=== PATIENT | male | born 1960 | race Caucasian/White ===

== ENCOUNTER 2020-03-17 | Inpatient (IN) | payer MEDICARE, MEDICAID ==
[2020-03-17] MEDS ORDERED: METFORMIN500 M2 PO (03:50)
--- NOTE | 2020-03-17 03:54 | NUR ---
XRAY AT BEDSIDE
--- NOTE | 2020-03-17 04:16 | NUR ---
IV STARTED/LABS DRAWN. 2ND CULTURES OBTAINED BY LAB/REGISTRATION AT BEDSIDE. PT STARES AHEAD AND IS HAVING A CONVERSATION WITH SOMEONE THAT ISN'T THERE.
[2020-03-17 04:54] LABS: URINE BILIRUBIN - DIPSTICK NEGATIVE (NEGATIVE); URINE BLOOD DIPSTICK MODERATE (NEGATIVE); URINE COLOR YELLOW; URINE GLUCOSE - DIPSTICK >=1000 mg/dL (NEGATIVE); URINE KETONE 15 mg/dL (NEGATIVE); URINE LEUK ESTERASE NEGATIVE (NEGATIVE); URINE NITRITE - DIPSTICK NEGATIVE (Negative); URINE PROTEIN - DIPSTICK 100 mg/dL (NEG-TRACE); URINE SPECIFIC GRAVITY >=1.030
[2020-03-17 04:56] LABS: HEMATOCRIT 40.6 % (39.0-50.0); HEMOGLOBIN 13.4 g/dl (14.0-18.0); IMMATURE GRANULOCYTES 0.2 % (0.0-5.0); MEAN CELL VOLUME 83.5 fL CALC (80.0-100.0); MEAN CORPUSCULAR HGB 27.6 pG CALC (26.0-32.0); NEUT# 7.54 thou/uL (1.82-7.42); RED BLOOD COUNT 4.86 mill/uL (4.70-6.10); RED CELL DISTRI WIDTH 13.2 % (11.5-15.5)
[2020-03-17 05:10] LABS: URINE BACTERIA FEW hpf; URINE EPITHELIAL CELLS FEW EPI/hpf (0-FEW); URINE MUCUS MODERATE hpf (NONE-FEW)
[2020-03-17 05:11] LABS: BARBITURATES NEGATIVE (NEGATIVE); COCAINE NEGATIVE (NEGATIVE); METHADONE NEGATIVE (NEGATIVE); OXCYCODONE NEGATIVE (NEGATIVE); TETRAHYDROCANNABIONOL NEGATIVE (NEGATIVE); TRICYLIC ANTIDEPRESSANTS NEGATIVE (NEGATIVE); URINE HYALINE CAST RARE lpf (NONE-RARE)
[2020-03-17 05:20] LABS: MYOGLOBIN 352 ng/mL (0 - 121)
--- NOTE | 2020-03-17 05:38 | NUR ---
COVID SWAB TO LAB. PT REFUSED TO ALLOW TO DO THE SWAB...HE GRABBED IT FROM ME AND ROTATED IT AROUND THE ANTERIOR NARES.
[2020-03-17 05:41] LABS: ALBUMIN 3.8 g/dL (3.2-5.0); ALKALINE PHOSPHATASE 87 u/l (38-126); ANION GAP 14 (6-22 (CALC)); BILIRUBIN, TOTAL 0.9 mg/dL (0.0-1.4); BUN 20 mg/dL (9-20); BUN/CREATININE RATIO 29 (12-20 (CALC)); CARBON DIOXIDE 22 mmol/l (22-30); CHLORIDE 108 mmol/l (95-108); CREATININE 0.7 mg/dL (0.7-1.3); GFR > 60 ML/MIN (>=60 (CALC)); GFR FOR AFR.AMER. > 60 ML/MIN (>=60 (CALC)); POTASSIUM 3.7 mmol/l (3.5-5.1); SGOT/AST 35 u/l (17-59); SODIUM 140 mmol/l (137-146); TOTAL PROTEIN 7.1 g/dL (6.3-8.2)
--- NOTE | 2020-03-17 06:15 | NUR ---
WOUNDS WERE PHOTOGRAPHED AND PLACED IN CHART. WOUNDS CLEANSED WITH SHURCLEANS. NON AHERANT DRSGS FOLLOWED BY 4X4/ERMIAS/DRESSING NET. BARIATRIC FOOTIES APPLIED OVERTOP. PT DOESN'T APPEAR TO HAVE FEELING IN EITHER FOOT.
--- NOTE | 2020-03-17 06:45 | NUR ---
PT WOULD NEVER GIVE A FULL EXPLANATION TO WHY HE WAS [place] THE [facility]. STATES HE JUST SPENT THE LAST 4 MONTHS AT A HOSPITAL IN [place]....EARLIER HE TOLD ME HE ARRIVED FROM [place] ON SUNDAY BECAUSE HE JUST BOUGHT SOME PROPERTY HERE AND HE IS MOVING HERE....JUST BEFORE GOING TO THE FLOOR...HE TOLD ME THAT HE PARENTS ARE ON THEIR WAY HERE FROM [facility] TO PICK HIM UP BUT CAN'T EXPLAIN HOW THEY KNEW HE WAS HERE.
--- NOTE | 2020-03-17 06:45 | NUR ---
REPORT TO CORINE. PT TO FLOOR VIA W/C. 3RD LITER OF FLUID TO FLOOR WITH PT AND VANCOMYCIN TO FLOOR WITH PT. 2 LITERS NS COMPLETED/ZOSYN COMPLETED. PT REFUSED TO CHANGE INTO GOWN AGAIN. SAID HE WOULD CHANGE AFTER HE GOT UPSTAIRS.
--- NOTE | 2020-03-17 06:53 | NUR ---
REPORT RECEIVED FROM ROBERT IN ED, PT ARRIVED ON UNIT @ 0653 VIA W/C AND TRANSFERRED TO BED. ORIENTED X 3, DENIES PAIN/DISCOMFORT, ORIENTED TO ROOM AND CALL HAYDEN. SOFT SPOKEN, INFORMATION INCONSISTENT AT TIMES EG: HE STATED HE HAS TO GO TO [place] TODAY TO GET HIS TRUCK BUT LATER SAID HIS IS IN [place] NOW AND WILL BRING DOWN HIS TRUCK, BUT SHE HAS HER OWN CAR WHICH SHE WILL BE DRIVING. WILL CONTINUE TO MONITOR.
[2020-03-17 07:44] VITALS: BP 153/89
--- NOTE | 2020-03-17 07:50 | NUR ---
DR LOPEZ CALLED AND GAVE ORDERS FOR LABS AND IMAGING STUDIES, PT INFORMED AND CONSENTED TO PROCEDURES.
[2020-03-17 12:37] VITALS: BP 156/83
--- NOTE | 2020-03-17 12:40 | NUR ---
PT REFUSED COZAAR STATING HI BLOOD PRESSURE IS ALWAYS IN 150'S/70'S-80'S AND HE DOES NOT WANT HYPERTENSIVE MEDS, EDICATED ON RISKS FOR STROKE AND OTHER COMPLICATION WITH DIABETES AND HTN, STILL REFUSED.
--- NOTE | 2020-03-17 13:36 | NUR ---
LEAVING UNIT NOW VIA W/C TO US FOR PROCEDURE.
--- NOTE | 2020-03-17 15:31 | NUR ---
S: MAEVE FARAH is a 60 M who presents with SSTI. He has a history of DM2. All medications in patient's chart were reviewed. O: VS: BP 156/83, P 73, RR 19,T 97.5 W 100kg, HT 78IN, Scr= 0.7,CrCl= >100ml/min A: Blood culture is pending P: Patient is on ZOSYN 3.375 GRAMS Q6H. Vancomycin ordered for pharmacy to dose. Start Vancomycin 1250MG IV Q8H. Vancomycin trough is drawn before the 4th dose on 03/18/20 @1330. Vancomycin goal trough is between 15-20 mcg/ml UNTIL BONE INFECTION RULED OUT . Pharmacy will follow and or advise on antibiotics use as needed. MACKENZIE MILAND
[2020-03-17 16:05] VITALS: BP 132/76
--- NOTE | 2020-03-17 17:02 | NUR ---
RESTING IN BE AT THIS TIME, ALL NEEDS ADDRESSED.
[2020-03-17 19:00] VITALS: BP 134/78
--- NOTE | 2020-03-17 19:10 | NUR ---
REPORT FROM VENANCIO CHANG. PT RESTING IN BED WITH EYES CLOSED. NO APPARENT DISTRESS NOTED. PT DENIES ANY PAIN OR DISCOMFORT. PT IS ORIENTED X3 HOWEVER NOT INTERESTED IN DISCUSSING POC AT THIS TIME. DRESSING NOTED TO BLE, CDI. IV SITE APPEARS HEALTHY WITH IV FLUIDS INFUSING. CALL LIGHT WITHIN REACH. PT INSTRUCTED TO CALL FOR NEEDS. WILL CONTINUE TO MONITOR.
--- NOTE | 2020-03-17 23:11 | NUR ---
PT RESTING IN BED WITH EYES CLOSED. NO APPARENT DISTRESS NOTED. DRESSING REMAIN CDI. CALL LIGHT WITHIN REACH. WILL CONTINUE TO MONITOR.
--- NOTE | 2020-03-18 03:26 | NUR ---
PT RESTING IN BED WITH EYES CLOSED. NO APPARENT DISTRESS NOTED. CALL LIGHT WITHIN REACH. WILL CONTINUE TO MONITOR.
[2020-03-18 05:00] VITALS: BP 132/80
--- NOTE | 2020-03-18 07:15 | NUR ---
REPORT RECEIVED FROM SHA KENNEY. PT RESTING IN BED SEMI FOWLERS; ALERT AND ORIENTED; FLAT AFFECT. DENIES PAIN TO FEET OR ELSEWHERE. RESPIRATIONS EVEN AND UNLABORED ON ROOM AIR. LUNGS ARE CLEAR; HEART RATE REGULAR AT 55 BPM. ACCU CHECK 252. WEAK PEDAL PULSES; OPEN AREAS TO BILATERAL FEET. IV FLUIDS INFUSING WITHOUT DIFFICULTY; IV SITE APPEARS HEALTHY. SAFETY MEASURES IN PLACE. CALL LIGHT WITHIN REACH.
--- NOTE | 2020-03-18 07:22 | NUR ---
DR. LOPEZ AT BEDSIDE TO DISCUSS PLAN OF CARE. PT DECLINING SURGICAL INTERVENTIN AT THIS TIME.
--- NOTE | 2020-03-18 07:41 | NUR ---
WOUNDS TO BILATERAL FEET CLEANSED WITH BETADINE AND DRY DRESSING; DRESSING ORDERS PER DR. LOPEZ AND NEW ORDER FOR WOUND CONSULT. PT TOLERATED WELL.
[2020-03-18 08:00] VITALS: BP 150/84
--- NOTE | 2020-03-18 08:41 | NUR ---
PT DECLINED COZAAR FOR BLOOD PRESSURE; REMINDED OF BLOOD PRESSURE 150/84; PT REPORTS THAT IS HIS NORMAL AND HE DECLINES. ALSO DECLINES LOVENOX; EXPLAINED INDICATION FOR LOVENOX AND PT AGAIN DECLINES STATING HE DOES NOT LIKE THAT IT INCREASES BLEEDING AT FINGER STICK SITES. PT AGREED TO WEAR SCD'S; APPLIED AT THIS TIME. PNEUMONIA VACCINE ADMINISTERED TO RIGHT ARM.
--- NOTE | 2020-03-18 09:17 | NUR ---
PT REQUESTING BIBLE AND GERIATRIC NURSE PRACTITIONER; PROVIDED.
--- NOTE | 2020-03-18 09:54 | NUR ---
COVID SWAB RESULTS NEGATIVE.
--- NOTE | 2020-03-18 11:49 | NUR ---
DR. MOMIN AT VIRTUAL BEDSIDE FOR INFECTIOUS DISEASE CONSULT. PT CONTINUES TO VERBALIZE DECLINATION OF ANY SURGICAL INTERVENTION.
--- NOTE | 2020-03-18 13:21 | NUR ---
TRANSITION LEAD AT BEDSIDE (FATHER EDMUND).
[2020-03-18 15:20] VITALS: BP 142/80
--- NOTE | 2020-03-18 15:24 | NUR ---
MEDICAL RECORDS OBTAINED FROM [facility] WHERE PT WAS DISCHARGED FROM ON 03/13/20. H&P REVEALED HOMELESSNESS AND OTHER SOCIAL ISSUES. CASE MANAGEMENT AND NURSE PRACTITIONER NOTIFIED.
--- NOTE | 2020-03-18 15:35 | NUR ---
S: MAEVE FARAH is a 60 M who presents with Osteomyelitis and diabetic foot ulcer . He has a history of DM2 and IV antibiotics. All medications in patient's chart were reviewed. O: VS: BP 142/80, P 57, RR 18,T 97.8 W 100kg, HT 78in, Scr=0.7 ,CrCl= >100ml/min A: Blood culture is pending. P: Patient is on Zosyn 3.375grams q6h. Vancomycin ordered for pharmacy to dose. Continue Vancomycin 1250mg IV Q8H. Vancomycin trough is drawn before the dose on 03/19/20 @1330. Vancomycin goal trough is between 15-20 mcg/ml. Dr. Hurt is not recommending prolonged iv antibiotics. Pharmacy will follow and or advise on antibiotics use as needed.
--- NOTE | 2020-03-18 19:10 | NUR ---
REPORT FROM HILDA CHANG. PT RESTING IN BED WITH EYES CLOSED. NO APPARENT DISTRESS NOTED. PT DENIES ANY PAIN OR DISCOMFORT. PT IS ORIENTED X3. DISCUSSED POC, PT VERBALIZED UNDERSTANDING. DRESSING NOTED TO BLE, CDI. IV SITE APPEARS HEALTHY WITH IV FLUIDS INFUSING. CALL LIGHT WITHIN REACH. PT INSTRUCTED TO CALL FOR NEEDS. WILL CONTINUE TO MONITOR.
[2020-03-18 19:18] VITALS: BP 157/84
--- NOTE | 2020-03-18 21:45 | NUR ---
PT C/O ACHY PAIN IN BOTH FEET 6-10. SAMPLE TESTER GRINDER PHYSICIAN NOTIFIED AND ORDERS RECEIVED. PT TO BE MEDICATED ONCE PHARMACY PROFILES MEDICATION. SNACK AND BLACK COFFEE PROVIDED UPON REQUEST. WILL CONTINUE TO MONITOR.
--- NOTE | 2020-03-19 01:03 | NUR ---
PT RESTING IN BED WITH EYES CLOSED. NO APPARENT DISTRESS NOTED. IV FLUIDS INFUSING WITHOUT DIFFICULTY. CALL LIGHT WITHIN REACH. WILL CONTINUE TO MONITOR.
[2020-03-19 04:43] LABS: IMMATURE GRANULOCYTES 0.4 % (0.0-5.0); MEAN CELL VOLUME 84.8 fL CALC (80.0-100.0); MEAN CORPUSCULAR HGB 27.4 pG CALC (26.0-32.0); MEAN CORPUSCULAR HGB CONC 32.3 g/dL CAL (32.0-36.0); NEUT# 3.04 thou/uL (1.82-7.42); RED BLOOD COUNT 4.02 mill/uL (4.70-6.10); RED CELL DISTRI WIDTH 13.1 % (11.5-15.5)
[2020-03-19 04:55] LABS: HEMATOCRIT 34.1 % (39.0-50.0)
[2020-03-19 05:01] VITALS: BP 148/86
[2020-03-19 05:03] LABS: ALKALINE PHOSPHATASE 67 u/l (38-126); ANION GAP 8 (6-22 (CALC)); BUN 9 mg/dL (9-20); BUN/CREATININE RATIO 12 (12-20 (CALC)); CARBON DIOXIDE 25 mmol/l (22-30); CHLORIDE 108 mmol/l (95-108); CREATININE 0.7 mg/dL (0.7-1.3); GFR > 60 ML/MIN (>=60 (CALC)); GFR FOR AFR.AMER. > 60 ML/MIN (>=60 (CALC)); POTASSIUM 3.4 mmol/l (3.5-5.1); SGOT/AST 17 u/l (17-59); SODIUM 138 mmol/l (137-146)
[2020-03-19 05:04] LABS: ALBUMIN 2.7 g/dL (3.2-5.0); BILIRUBIN, TOTAL 0.3 mg/dL (0.0-1.4); TOTAL PROTEIN 5.3 g/dL (6.3-8.2)
--- NOTE | 2020-03-19 05:48 | NUR ---
PT RESTING IN BED WITH EYES CLOSED. PT WAKES EASILY. DENIES ANY PAIN. PT SHORT WITH ANSWERS. NO APPARENT DISTRESS NOTED. CALL LIGHT WITHIN REACH. WILL CONTINUE TO MONITOR.
--- NOTE | 2020-03-19 07:00 | NUR ---
SHIFT CHANGE REPORT, PT AWAKE ALERT AND ORIENTED WITH FLAT AFFECT, POLITE, DENIES PAIN/DISCOMFORT, CALL HAYDEN IN REACH.
[2020-03-19 07:26] VITALS: BP 151/82
--- NOTE | 2020-03-19 10:01 | NUR ---
DR CHRISTOPHER HERE ON CONSULT FOR TREATMENT TO WOUNDS ON FEET, SHE REPORTED PT REFUSED TREATMENT STATING GOD WILL HEAL HIM, ALL OTHER NEEDS ADDRESSED, CALL HAYDEN IN REACH.
--- NOTE | 2020-03-19 12:00 | NUR ---
MD DUQUE, DISCUSSED MEDICAL CONDITION OF FOOT WITH PT WHO STATED HE WILL NOT HAVE ANY MORE SURGICAL INTERVENTION DONE HE ALREADY HAD SURGERY WHICH WAS UNNECESSARY AND HE IS IN THE PROCESS OF SUING THE DOCTOR WHO PERFORMED THE SURGERY. HE ALSO STATED GOD WILL HEAL HIS FEET, HE IS WILLING TO HAVE ANTIBIOTICS BUT THATS ABOUT ALL THE TREATMENT HE WILL HAVE FOR FEET.
--- NOTE | 2020-03-19 15:27 | NUR ---
pt presents with osteomyelitis. deshawno ordered for pharmacy to dose. increase dose to 1500mg iv q8h @ 0630, 1400, and 2200. goal trough is 15-20 and is to be drawn 30 min before 4th dose on 03/20 @ 2130. pharmacy will continue to monitor
[2020-03-19 15:39] VITALS: BP 149/84
--- NOTE | 2020-03-19 16:03 | NUR ---
PT REPORTED THAT WHILE IN [facility] HE OBSERVED A FACE WITH VISIBLE TEETH ON HIS RIGHT FOOT AND FACE SPOKE TO HIM TELLLING HIM HE WAS A BAD PERSON, HE THEN TOOK A PAIR OF SCISSORS AND CUT OFF FACE WHICH THEN JUMPED AWAY TO ANOTHER ROOM AND THATS HOW HE GOT THE WOUNDS ON HIS FOOT THEY WERE HEALED BEFORE THIS INCIDENT. WILL CONTINUE TO MONITOR.
--- NOTE | 2020-03-19 16:15 | NUR ---
OLD DRESSINGS REMOVED FROM BOTH FEET, WOUNDS CLEANED WITH 0.9NS, BETADINE APPLIED AND COVERED WITH DSD, HE TOLERATED PROCEDURE WELL.
--- NOTE | 2020-03-19 19:15 | NUR ---
REPORT FROM VENANCIO CHANG. PT RESTING IN BED WITH EYES CLOSED. NO APPARENT DISTRESS NOTED. PT DENIES ANY PAIN OR DISCOMFORT. PT IS ORIENTED X3. DISCUSSED POC, PT VERBALIZED UNDERSTANDING. DRESSING NOTED TO BLE, CDI. IV SITE APPEARS HEALTHY WITH IV FLUIDS INFUSING. CALL LIGHT WITHIN REACH. PT INSTRUCTED TO CALL FOR NEEDS. WILL CONTINUE TO MONITOR.
[2020-03-19 20:05] VITALS: BP 152/84
--- NOTE | 2020-03-19 23:02 | NUR ---
PT RESTING IN BED WITH EYES CLOSED. NO APPARENT DISTRESS NOTED. CALL LIGHT WITHIN REACH. WILL CONTINUE TO MONITOR.
--- NOTE | 2020-03-20 03:46 | NUR ---
PT RESTING IN BED WITH EYES CLOSED. NO APPARENT DISTRESS NOTED. IV FLUIDS INFUSING WITHOUT DIFFICULTY. CALL LIGHT WITHIN REACH. WILL CONTINUE TO MONITOR.
--- NOTE | 2020-03-20 06:05 | NUR ---
IV SITE FOUND DISLODGED. X4 ATTEMPTS BY TWO NURSES WITHOUT SUCCESS. PT REQUESTING PICC LINE BE PLACED. JUNIOR NET DEVELOPER NOTIFIED OF NEED FOR IV ATTEMPT, TOW CAR DRIVER WAS TOLD ER NURSE WOULD COME AND ATTEMPT WHEN AVAILABLE. IV ABT NOT GIVEN AT THIS TIME.
--- NOTE | 2020-03-20 06:55 | NUR ---
PHYSICIAN NOTIFIED OF PT NOW RECEIVING MORNING DOSE OF ABT DUE TO NO IV ACCESS.
--- NOTE | 2020-03-20 07:20 | NUR ---
change of shift report received from SHA Sol. pt sitting up in bed. pt denies any pain. call light within easy reach. bond writer will continue to monitor.
[2020-03-20 07:53] VITALS: BP 171/94
[2020-03-20 09:14] VITALS: BP 159/86
--- NOTE | 2020-03-20 10:59 | NUR ---
Patient decides to leave AMA. Multiple attempts made to ecourage patient to remain here for continued treatment. Explained to patient all risks of leaving against medical advice including . Pt verbalized understanding of all risks. Pt also encouraged to return to [facility] at any time, especially if symptoms continue or become worse. Pt verbalized understanding.
== END 2020-03-20 11:08 | disposition left against medical advice (07) | DRG 638 ==
PROVIDERS: Emergency Medicine; Nurse Practitioner Family; ADMIT Internal Medicine
PROC: 3E0234Z Introduction of Serum, Toxoid and Vaccine into Muscle, Percutaneous Approach (ICD-10-PCS; principal; 2020-03-18)
DX: E11.69 Type 2 diabetes mellitus with other specified complication (principal); M86.671 Other chronic osteomyelitis, right ankle and foot; M00.871 Arthritis due to other bacteria, right ankle and foot; L03.115 Cellulitis of right lower limb; L97.518 Non-pressure chronic ulcer of other part of right foot with other specified severity; L97.528 Non-pressure chronic ulcer of other part of left foot with other specified severity; E11.621 Type 2 diabetes mellitus with foot ulcer; E11.65 Type 2 diabetes mellitus with hyperglycemia; I10 Essential (primary) hypertension; E77.8 Other disorders of glycoprotein metabolism; D63.8 Anemia in other chronic diseases classified elsewhere; T38.3X6A Underdosing of insulin and oral hypoglycemic [antidiabetic] drugs, initial encounter; S90.411A Abrasion, right great toe, initial encounter; X58.XXXA Exposure to other specified factors, initial encounter; Z23 Encounter for immunization; Z91.128 Patient's intentional underdosing of medication regimen for other reason; Z79.84 Long term (current) use of oral hypoglycemic drugs; Z89.432 Acquired absence of left foot; Z53.20 Procedure and treatment not carried out because of patient's decision for unspecified reasons; Z11.59 Encounter for screening for other viral diseases
CPT/HCPCS: J1650; J3370; Q3014